=== PATIENT | male | born 1945 | race Caucasian/White ===

== ENCOUNTER 2016-11-24 21:18 | Inpatient (IN) | payer MEDICARE, OTHER ==
[~2016-11-24] VITALS: Ht 190.5 cm; Wt 74.3 kg
[2016-11-24 21:27] VITALS: BP 125/73; PULSE 87; RESP 20; O2SAT 96
[2016-11-24] MEDS ORDERED: 0.9% Sodium Chloride 1,000 ML IV ONE (21:47)
--- NOTE | 2016-11-24 21:47 | ED.REPORT ---
HPI-Fever Date of Service November 24, 2016 ED Provider: Dr. Gupta Pt is a 71 year old male who presents to the ED with complaints of a fever that started 10 days ago. He reports a mild cough, and chest pain at its onset. This progressively worsened as a head cold. Today, he began to feel excessively shaky and experience body aches. Pt additionally reports dysuria and increased urinary frequency. He denies any chest pain or shortness of breath now. He has no other complaints. Nursing Notes Stated Complaint: FEVER Chief Complaint: General Complaint Nursing Notes Reviewed: Yes Allergies: Coded Allergies: ciprofloxacin (Verified Allergy, Unknown, 11/24/16) General Time Seen by MD: 21:46 Chief Complaint Fever currently Hx Obtained From: Patient Arrived By: Walk-in Onset Occurred: More than a week ago... Symptom Duration: Waxes and wanes Location: : Head Quality: Painful Severity: Current: Mild Severity: Maximum: Moderate Context: Immunization Status General: All up to date Similar Sx Previous: Yes Past Medical History Past Medical History Healthy Ambulatory Status Independent Review of Systems Constitutional: Reports: Chills, Fever, Weakness - generalized, Denies: Malaise Respiratory: Reports: Non-productive cough, Shortness of breath, Denies: Wheezing Cardiovascular: Denies: Chest pain, Syncope GI: Denies: Abdominal pain, Constipation, Diarrhea, Nausea, Vomiting Female: Reports: Dysuria, Urinary frequency Skin: Denies Diaphoresis Neurologic: Denies: Change LOC, Dizziness, Headache, Syncope, Weakness Complete sys rev & neg: except as marked. Physical Exam Initial Vital Signs Vital Signs (First) Date Time Temp Pulse Resp B/P Pulse Ox O2 Delivery O2 Flow Rate FiO2 11/24/16 21:27 38.4 87 20 125/73 96 Room Air Initial VS: Reviewed Head / Eyes: Atraumatic, Normocephalic, PERRL ENT: Mucous membranes moist, Conjunctiva normal, No scleral icterus Abdomen / GI: Soft, Non-tender, No guarding, No rebound, No distention Psychiatric: Mood/affect normal, Behavior normal, Normal thought content General/Constitutional: Awake, Alert, Well appearing, Well developed, Well nourished, Cooperative Neck: Atraumatic, Supple, No meningismus Respiratory / Chest: Atraumatic, Breath sounds NL, Breath sounds = bilat, No respiratory distress Diffuse crackles heard bilaterally Cardiovascular: Heart rate NL, Regular rhythm, Heart sounds NL, No gallop, No murmurs, No rubs Skin: Atraumatic, Color NL, Warm Neurologic: Oriented X3, Speech NL, No motor deficits, No sensory deficits, CN II - XII intact Interpretation & Diagnostics Lab Results Interpretation Result Diagram: 11/24/16223411/24/162234 Test 11/24/16 22:35 11/24/16 23:30 11/24/16 23:45 White Blood Count 16.1th/mm3 (3.8-10.1) Red Blood Count 4.33mil/mm3 (4.40-5.80) Hemoglobin 13.4g/dL (13.8-17.2) Hematocrit 39.1% (41.0-50.0) Mean Corpuscular Volume 90.3fL (81-100) Mean Corpuscular Hemoglobin 30.9pg (27.0-35.0) Mean Corpuscular Hemoglobin Concent 34.3% (32.0-37.0) Red Cell Distribution Width 13.0% (12.3-15.4) Platelet Count 194bil/L (150-400) Neutrophils (%) (Auto) 90.1% (40-74) Lymphocytes (%) (Auto) 3.3% (14-46) Monocytes (%) (Auto) 6.1% (4-12) Eosinophils (%) (Auto) 0% (0-5) Basophils (%) (Auto) 0.1% (0-3) Prothrombin Time 11.1sec (8.1-12.5) Prothromb Time International Ratio 1.04ratio Sodium Level 140mEq/L (134-144) Potassium Level 3.6mEq/L (3.5-5.2) Chloride Level 100mEq/L (97-108) Carbon Dioxide Level 23mmol/L (18-29) Blood Urea Nitrogen 22mg/dL (8-27) Creatinine 0.88mg/dL (0.76-1.27) Estimat Glomerular Filtration Rate 90mL/min (>59) Glucose Level 110mg/dL (60-99) Lactic Acid Level 1.1mmol/L (0.4-2.0) Calcium Level 9.2mg/dL (8.5-10.1) Total Bilirubin 0.7mg/dL (0.0-1.2) Aspartate Amino Transf (AST/SGOT) 24U/L (0-50) Alanine Aminotransferase (ALT/SGPT) 15U/L (0-44) Alkaline Phosphatase 49U/L (25-160) Troponin T 0.010ug/L (0.0-0.011) Pro-B-Type Natriuretic Peptide 558.9pg/mL (0-376) Total Protein 6.5g/dL (6.4-8.4) Albumin 3.9g/dL (3.4-5.0) Lipase 21U/L (13-60) Procalcitonin 1.37ng/mL (0.00-0.08) D-Dimer 0.90mg/L FEU (<0.50) Urine Color Yellow (YELLOW) Urine Appearance Clear (CLEAR,HAZY) Urine pH 8.0 (5.0-8.0) Urine Specific [place] 1.020 (1.003-1.035) Urine Protein Negativemg/dL (NEG,TRACE) Urine Glucose (UA) Negativemg/dL (NEGATIVE) Urine Ketones 15mg/dL (NEGATIVE) Urine Occult Blood Trace (NEGATIVE) Urine Nitrite Negative (NEGATIVE) Urine Bilirubin Negative (NEGATIVE) Urine Urobilinogen Normalmg/dL (NORMAL) Urine Leukocyte Esterase Negative (NEGATIVE) Urine RBC 3-10/hpf (0-2) Urine WBC 0-5/hpf (0-5) Urine Epithelial Cells Occasional/hpf (NONE-MOD) Urine Crystals None seen (NONE SEEN) Urine Bacteria None/hpf (NONE-FEW) Urine Hyaline Casts None/lpf (NONE) Urine Granular Casts None seen (NONE SEEN) Urine Waxy Casts None seen (NONE SEEN) Urine Red Blood Cell Casts None seen (NONE SEEN) Urine White Blood Cell Casts None seen (NONE SEEN) Urine Mucus None seen (None Seen) Urine Trichomonas None seen (NONE SEEN) Urine Yeast None (NONE SEEN) Urine Culture Reflexed Not indicated ECG Interpretation ECG Interpretation: SR - 72 Time: 22:24 Interpreted by: ED physician Re-Eval/Medical Decision Med Decision/Clinical Course Solitary riders is suspicious for community acquired pneumonia. 17,000 white blood cell count. Elevated pro calcitonin and a developing infiltrate in the right chest. All things considered this as community acquired pneumonia. Pulmonary emboli seems much less likely. We will treat him with IV Rocephin and Zithromax. He is from [place] so therefore the valley fever antibodies will be sent out. He does not have an eosinophilia slight doubt he has Valley fever however following up with the antibodies as certainly the right approach. Source of Hx: Old records Re-Evaluation/Progress : Time of Eval: 23:51 Re-Evaluation/Progress Note: Pt is rechecked and informed of his labs and imaging results and the plan to admit him at this time. He underrstands and agrees, all questions are addressed. Consultation : Referral / Consult Name: Lani Cruz DO Consulted With: Hospitalist Call Returned at: 00:19 Magazine Filler: Will see patient, Agrees with plan, Accepts admit Counseled Regarding: Diagnosis, Lab results, Need for admission Discharge & Departure Shift Change Sign-Out Response to Therapy: Improved Impression: Primary Impression: Pneumonia Pneumonia type: due to unspecified organism Laterality: right Lung location : lower lobe of lung Qualified Code: J18.1 - Lobar pneumonia, unspecified organism Additional Impressions: Leukocytosis Leukocytosis type: bandemia Qualified Code: D72.825 - Bandemia Fever Fever type: unspecified Qualified Code: R50.9 - Fever, unspecified Disposition: ADMITTED TO HOSPITAL Discharge Condition All VS Reviewed: Yes Condition: Stable Referrals: NOPCP (PCP) Katelynibgordon Attestation Portions of this note were transcribed by Nica Gutierrez. I, Dr. Gupta personally performed the history, physical exam and medical decision-making; I reviewed and confirmed the accuracy of the information in the transcribed note. Signed by: Joellen Moreno, 11/24/2016 [Time]. Jasper Gupta DO November 24, 2016 21:47 JENNIFER GUTIERREZ November 24, 2016 22:36
[2016-11-24 22:53] LABS: BASOPHILS % (AUTO) 0.1 % (0-3); EOSINOPHILS % (AUTO) 0 % (0-5); MONOCYTES % (AUTO) 6.1 % (4-12); Mean Corpuscular Hemoglobin 30.9 pg (27.0-35.0); Mean Corpuscular Volume 90.3 fL (81-100); NEUTROPHILS % (AUTO) 90.1 % (40-74); Platelet Count 194 bil/L (150-400)
[2016-11-24 23:06] LABS: INR 1.04 ratio
[2016-11-24] MEDS ORDERED: cefTRIAXone Inj 2,000 MG in Dextrose 5% Minibag Plus 50 ML IV ONE (23:10)
[2016-11-24 23:20] LABS: TROPONIN T 0.01 ug/L (0.0-0.011)
[2016-11-24] MEDS ORDERED: Azithromycin Inj 500 MG in Dextrose 5% w/Vial Mate 250 ML IV ONE (23:50)
[2016-11-25 00:08] LABS: APPEARANCE,URINE CLEAR (CLEAR,HAZY); COLOR,URINE YELLOW (YELLOW); OCCULT BLOOD,URINE TRACE (NEGATIVE); UROBILINOGEN,URINE NORMAL (NORMAL)
[2016-11-25] MEDS ORDERED: Pantoprazole 4 mg/mL 10 mL Inj IVPUSH ONE (00:30)
[2016-11-25] MEDS ORDERED: Ondansetron 2 mg/mL 2 mL Inj IVPUSH PRN (00:30)
[2016-11-25] MEDS ORDERED: Alum-Mag Hydrox-Simeth 30 mL Suspension PO PRN (00:30)
[2016-11-25] MEDS ORDERED: Polyethylene Glycol (PEG) 17 Gm Powder PO PRN (00:30)
[2016-11-25 01:00] VITALS: BP 105/59; PULSE 75; RESP 16; O2SAT 94
--- NOTE | 2016-11-25 01:30 | PCM.HPMED ---
Subjective Date of Service November 25, 2016 Primary Provider: Admitting Physician: Lani Cruz DO Primary Care Physician: Pk Attending Physician: Lani Cruz DO Admit Status: From the Emergency Department Chief Complaint: Fevers, chills, malaise and fatigue. History of Present Illness: Mr. Bhavesh Hernández is a very pleasant 71-year-old gentleman who presents to the [facility] emergency Department with recent onset high fevers, chills, malaise and fatigue. He has a relatively benign past medical history only significant for hypertension, and hypothyroidism. He reports 7 days ago feeling not quite right which eventually progressed to a head cold for 3 days. Today he reports all of a sudden not feeling well and experienced fevers of 104 Fahrenheit, violent chills, malaise and fatigue. He denies sick contacts. He reports currently feeling pretty well, with some very mild nausea, and very mild right sided chest pain on deep inspiration. He denies headache, syncope, change in vision,vomiting, chest pain, palpitations, cough, shortness of breath , abdominal pain, constipation, diarrhea, or dysuria. He lives in [facility] 6 months a year and just returned from 6 months in [place] 2 days ago from a 24 hour car ride. He is in very good health and is an avid cyclist. He denies smoking or illicit drug use. He has 1-2 glasses of wine nightly. Upon admission to the emergency department patient's vitals were as follows: Temperature 38.4 C, pulse 87, respiratory rate 20, blood pressure 125/73, pulse ox 96 on room air. White count 16.1, hemoglobin 13.4, Princess to 194, neuts 90.1%, lymphocytes 3.3%. Sodium 140 potassium 3.6 chloride 100 carbon dioxide 23, glucose 110, lactic acid 1.1, proBNP 558, troponin 0.010, AST ALT alkaline phosphatase 24/15/49, lipase 21, pro calcitonin 1.37. UA negative. Influenza negative. Blood cultures 2 pending, sputum culture pending, viral respiratory panel ordered In the emergency department Patient received IV fluids, pantoprazole, ceftriaxone and azithromycin. Review of Systems: Constitutional: Reports malaise and fatigue. Denies syncope. HEENT: Reports chronic neck pain. Denies headache, change in vision. Respiratory: Reports nonproductive cough, mild. Denies shortness of breath. Cardiac: Denies chest pain or palpitations. GI: Reports mild nausea. Denies vomiting. : Reports chronic nocturia. Denies dysuria. Musculoskeletal: Denies pain, trauma. Integumentary: Denies rashes, lymphadenopathy, edema, erythema. Extremities: Denies numbness tingling, edema. Allergies Coded Allergies: ciprofloxacin (Verified Allergy, Unknown, 11/24/16) Home Medications Aspirin 81 mg daily Cholecalciferol 1000 units daily Glucosamine chondroitin vitamin D3 one tab daily Levothyroxine 125 g tablet taking 62.5 g daily Last 3 and 18 sodium 5 g tablet daily Lisinopril 20 mg twice a day Meloxicam 15 mg at night Sildenafil 20 mg by mouth when necessary Simvastatin 10 mg at night Tizanidine 4 mg by mouth at night Coenzyme Q10 10 mg daily Zolpidem 5 mg at night as needed PMH Hypertension Hypothyroidism Surgical History Denies surgical history. Family History Father at the age of 80 with pulmonary embolism. Social History Hx Alcohol Use: Yes (1-2 glasses wine per day) Hx Substance Use: No Exam Vital Signs Vital Sign - Last Date Time Temp Pulse Resp B/P Pulse Ox O2 Delivery O2 Flow Rate FiO2 11/25/16 01:00 37.3 75 16 105/59 94 Room Air Intake and Output 11/24/16 11/24/16 11/25/16 Cumulative From/Thru 15:00 23:00 07:00 11/24/16 21:27 - 11/24/16 22:49 Intake Total 1000 ml 1000 ml Balance 1000 ml 1000 ml Intake IV Total 1000 ml 1000 ml Exam General: Healthy-appearing elderly gentleman lying in bed in no acute distress, well-developed, well-nourished, appropriately interactive HEENT: Normocephalic, atraumatic. External ears without defect. Pupils equal, round, and reactive to light and accommodation. Anicteric sclerae, moist conjunctivae, and no lid lag. Oropharynx free of erythema and cobble stoning with moist mucosa. Neck: Supple with full range of motion. No jugular venous distension. No bruits. No lymphadenopathy or thyromegaly. Cardiovascular: Regular rate and rhythm with no murmurs, rubs, or gallops appreciated Pulmonary: Clear to auscultation bilaterally with very mild left middle lobe and expiratory and end inspiratory wheeze, no rhonchi. Normal respiratory effort with no use of accessory muscles. Abdomen: Bowel tones present. Soft, nontender, nondistended. No hepatosplenomegaly or masses appreciated. Extremities: No clubbing, cyanosis, edema, or lymphadenopathy appreciated. Skin: Normal temperature, turgor, and texture; no rash, ulcers, or subcutaneous nodules appreciated. Neurological: Cranial nerves grossly intact. Normal muscle strength, tone, and bulk. Reflexes, coordination, and sensory function within normal limits. No known gait impairment. Psychiatric: Normal mood and affect. Alert and oriented to person, place, and time. Lab and Diagnostics Result Diagram: 11/24/16223411/24/162234 Assessment & Plan Mr. Bhavesh Hernández is a very pleasant 71-year-old gentleman who presents to the [facility] emergency Department with recent onset high fevers, chills, malaise and fatigue. He has a relatively benign past medical history only significant for hypertension, and hypothyroidism. He reports 7 days ago feeling not quite right which eventually progressed to a head cold for 3 days. Today he reports all of a sudden not feeling well and experienced fevers of 104 Fahrenheit, violent chills, malaise and fatigue. He denies sick contacts. He reports currently feeling pretty well, with some very mild nausea, and very mild right sided chest pain on deep inspiration. He denies headache, syncope, change in vision,vomiting, chest pain, palpitations, cough, shortness of breath , abdominal pain, constipation, diarrhea, or dysuria. He lives in [facility] 6 months a year and just returned from 6 months in [place]. He is an avid cyclist. He denies smoking or illicit drug use. He has 1-2 glasses of wine nightly. 1. Sepsis, present on admission. Active. - Pulmonary source - White count 16.1, neutrophil 90.1, temperatures 38.4 C, respiratory rate 20. - Likely bacterial pneumonia vs viral vs valley fever. - Chest x-ray as above. - Rapid flu negative. - Pro calcitonin 1.37. - D-dimer 0.90. Patient does have several risk factors of recent travel (24 hours car ride 2 days ago) and father of pulmonary embolism. - Wells score was 1.5 = Low likelihood of PE, PERC score was 1. Patient was offered CT PE scan, and he declined due to radiation and claims of "radiation exposure that affected his thyroid." I advised that if your heart rate increases and/or you experience shortness of breath I would Highly recommend CT PE. - PCR viral panel pending. - Blood cultures 2. Pending. - Sputum culture pending. - Strep pneumo/Legionella Ur antigen pending. - Coccidioides Ab pending. - Continue antibiotics from ED, ceftriaxone, azithromycin. - Continue IV fluids. 2. Chronic hypertension, not present on admission. Controlled. - Continue home lisinopril 20 Mg. 3. Hypothyroidism, present on admission. Controlled. - Continue home Synthroid 125 Mcg daily. 4. Chronic neck pain. present on admission. Active. - Continue Mobic. Continue home medications. ASA 81. Simvastatin 10 Mg. Holding home medications. Sildenafil. Day team to reconcile other home medications. Tizanidine PRN. Zolpidem PRN. Liothyronine. 5 Mcg. Acetaminophen for mild pain when necessary. Bowel regimen Senna and MiraLAX scheduled and PRN. Zofran when necessary for nausea and vomiting. SubQ heparin held for now. SCDs in place. Disposition: Patient has been admitted under inpatient status. Discharge is dependent upon fevers and pneumonia, discharged home when medically stable. Pain Evaluation: Adequate Pain Control Resuscitation Status: CPR: Attempt Resuscitation Attending Statement The patient was seen and examined together with house staff on 11/25/2016 and I agree with the history, exam and plan as outlined in the note above. MARIELENA MACIEL DO November 25, 2016 01:30 Lani Cruz DO November 25, 2016 06:36
[2016-11-25 01:39] VITALS: BP 117/63; PULSE 76; RESP 18; O2SAT 98
[2016-11-25] MEDS ORDERED: ASPI-973 PO (01:50)
[2016-11-25] MEDS ORDERED: TIZA4CAP8 PO (01:50)
[2016-11-25] MEDS ORDERED: LIOT5TAB3 PO (01:50)
[2016-11-25] MEDS ORDERED: UBID10CA9 PO (01:50)
[2016-11-25] MEDS ORDERED: ZOLP5TAB6 PO (01:50)
[2016-11-25] MEDS ORDERED: LISI-567 PO (01:50)
[2016-11-25] MEDS ORDERED: GLUC-140 PO (01:50)
[2016-11-25] MEDS ORDERED: SILD20TA14 PO (01:50)
[2016-11-25] MEDS ORDERED: LEVO125T6 PO (01:50)
[2016-11-25] MEDS ORDERED: MELO15TA14 PO (01:50)
[2016-11-25] MEDS ORDERED: CHOL100045 PO (01:50)
[2016-11-25] MEDS ORDERED: SIMV10TA4 PO (01:50)
[2016-11-25] MEDS: 0.9% Sodium Chloride 1,000 ML IV SCH ×3 (02:45→22:30)
--- NOTE | 2016-11-25 04:53 | NUR ---
Admit to 1015 Pt arrived alert and fully oriented from ED, able to transfer self to bed with steady gait. Complains of mild chronic neck pain, declines offer of medication. Complains of pain in right side of chest with deep inspiration; declined to have CT done despite conversation with Md regarding potential radiation exposure. Will notify Md if symptoms concerning for PE increase. IV fluids infusing, SCDs applied, independent mobility. Oriented to hospital routines, plan of care; hourly rounding ongoing.
[2016-11-25 06:05] VITALS: BP 112/56; PULSE 61; RESP 18; O2SAT 98
--- NOTE | 2016-11-25 08:16 | DRSVH ---
PROCEDURE: X-RAY CHEST, TWO VIEWS ([id number]) INDICATIONS: fever, rigors TECHNIQUE: 2 views of the chest were acquired. COMPARISON: None. FINDINGS: Surgical changes and devices: None. Lungs and pleura: There is infiltrate in right middle lobe medially consistent with pneumonia. There is a nodular density in the right base, probably the nipple shadow. Hyperinflation consistent with C OPD. No pleural effusions or pneumothorax. Mediastinum: Mediastinal contours are normal. Heart size is normal. Bones and chest wall: No suspicious bony abnormalities. Soft tissues appear unremarkable. IMPRESSION: 1. Right middle lobe infiltrate compatible with pneumonia. 2. A nodular density in the right base, most likely caused by nipple shadow. Recommend followup exami nation with nipple shadow. 3. COPD. Dictated by: Judie Mohr M.D. on 11/25/2016 at 8:12 Approved by: Judie Mohr M.D. on 11/25/2016 at 8:14
--- NOTE | 2016-11-25 13:39 | NUR ---
Scheduled Hospital follow up appointment for December 04 check in at 410PM for a 430PM appointment with .
--- NOTE | 2016-11-25 14:06 | NUR ---
Social Work: Initial Assessment D: EMR reviewed. Pt is a 71 y/o male admitted for pneumonia, leukocytosis, and fever per H&P. BAYLEE met with pt and spouse at bedside to conduct initial assessment. Pt was alert and oriented x3. SW explained role and wrote phone number on white board. SW confirmed pt has completed DPOA/advanced directive ppw and encouraged pt to provide a copy to the hospital. Pt's primary contact and DPOA is spouse Padmini Hernández (Dee) ([phone]) and pt gave verbal consent that she can be contacted for discharge planning. Pt's insurance is Medicare and [employer]. Pt's PCP in [place] is Nadir Quick MD. Pt requested local PCP referral. SW requested MD to place order for SW to schedule local PCP appointment at [facility] residency clinic. Pt has no Hx of HH or SNF. Pt has no LTC or VA insurance. Pt is independent with ADLs. Pt does not use any DME. Pt drives. Pt is independent at baseline. Pt lives at home with spouse in [place] (6 months in and 6 months in [place]). Pt lives is a single-story, level home with no steps to enter. Pt's spouse will provide transport home via POV when pt is medically stable. BAYLEE will schedule appointment for local PCP through the residency clinic once MD has placed order. BAYLEE does not anticipate any discharge needs at this time but will continue to follow if needs arise. A: Pt who is independent at baseline. P: Pt's spouse will provide transport home via POV when pt is medically stable. BAYLEE will schedule appointment for local PCP through the residency clinic once MD has placed order. BAYLEE does not anticipate any discharge needs at this time but will continue to follow if needs arise. Addendum: 11/25/16 at 1421 by CHUNG CANELA Amended: Links added. Addendum: 11/25/16 at 1424 by CHUNG KAPADIA Pt scheduled with new PCP at [facility] on 12/[address] Capone. Pt is scheduled for a 16:10 check-in for a 16:30 appointment. SW confirmed appointment, location, and phone number of [facility] with pt and pt is agreeable. VIKTORIA Lopes Addendum: 11/25/16 at 1431 by CHUNG CANELA [facility]
--- NOTE | 2016-11-25 15:03 | NUR ---
Headache/concerns Patient c/o headache this am treated with Tylenol . Patient does also have some chest discomfort when takes deep inspiration but no resp distress noted. Patient denies cough, nausea or diarrhea. Patient has concerns regarding follow up appointment post discharge. Appointment has been made with residency clinic .
[2016-11-25 16:15] VITALS: BP 121/72; PULSE 53; RESP 16; O2SAT 97
--- NOTE | 2016-11-25 17:12 | PCM.PNMED ---
Subjective Date of Service November 25, 2016 Subjective Patient looks well, having a little bit of chest pain when he breathes deep but minimal to no cough no fevers. His on the other hand has a multitude of questions and wants to know every single lab value and result and is inquiring why certain diagnostics that were mentioned in the ER have not been done including a CT scan of the chest for which I see no indication at this time. I have explained her patient has strep pneumo antigen at the time I spoke to her we did not have the viral PCR back to no about Metapneumo virus and he actually looks quite well. Exam Vital Signs Vital Sign - Last Date Time Temp Pulse Resp B/P Pulse Ox O2 Delivery O2 Flow Rate FiO2 11/25/16 16:15 36.6 53 16 121/72 97 Room Air Intake and Output 11/24/16 11/24/16 11/25/16 Cumulative From/Thru 15:00 23:00 07:00 11/24/16 21:27 - 11/25/16 06:46 Intake Total 1000 ml 947 ml 1947 ml Output Total 1000 ml 1000 ml Balance 1000 ml -53 ml 947 ml Intake Oral 300 ml 300 ml IV Total 1000 ml 647 ml 1647 ml Output Urine Total 1000 ml 1000 ml Exam Gen.- A+ O 3 no apparent distress. Thin male sitting up in bed does not appear ill Eyes- open conjunctiva clear, pupils equal nonicteric ENT- ears normal, nose normal Neck- supple/trach midline CVS- RRR no murmur or gallop Lungs- CTA GI- NABS/NT soft Musc- moving 4 no obvious deformity Neuro- cranial nerves II through XII intact to gross examination, nonfocal Skin- warm and dry, no rashes/lesions/wounds noted Psych- pleasant and appropriate, Lab and Diagnostics Result Diagram: 11/24/16223411/24/162234 Assessment & Plan Healthy 71-year-old man who presents with acute on chronic pulmonary symptoms to the ER 11/24 and was admitted overnight. 11/25 I spent at least a 35min [id number] answering questions with the patient in the room for his . Going over every lab value that was back. 1. Sepsis, present on admission. Active. - Blood cultures 2. Pending. - Sputum culture pending. - Strep pneumo ++/Legionella Ur antigen pending. - Coccidioides Ab pending. -Viral profile positive for metapneumo virus - Continue antibiotics from ED, ceftriaxone, azithromycin. - Continue IV fluids. 2. Chronic hypertension, not present on admission. Controlled. - Continue home lisinopril 20 Mg. 3. Hypothyroidism, present on admission. Controlled. - Continue home Synthroid 125 Mcg daily. 4. Chronic neck pain. present on admission. Active. - Continue Mobic. Continue home medications. ASA 81. Simvastatin 10 Mg. Holding home medications. Sildenafil. Day team to reconcile other home medications. Tizanidine PRN. Zolpidem PRN. Liothyronine. 5 Mcg. Acetaminophen for mild pain when necessary. Bowel regimen Senna and MiraLAX scheduled and PRN. Zofran when necessary for nausea and vomiting. SubQ heparin held for now. SCDs in place. Disposition: Patient has been admitted under inpatient status. Discharge is dependent upon fevers and pneumonia, discharged home when medically stable. VTE Mechanical Devices: Intermittant Pneumatic CD Resuscitation Status: CPR: Attempt Resuscitation Tyrese Fernandez MD November 25, 2016 17:12
[2016-11-25 20:23] VITALS: BP 130/72; PULSE 59; RESP 18; O2SAT 98
[2016-11-25] MEDS ORDERED: cefTRIAXone Inj 2,000 MG in Dextrose 5% Minibag Plus 50 ML IV SCH (22:00)
[2016-11-25] MEDS ORDERED: Azithromycin Inj 500 MG in Dextrose 5% w/Vial Mate 250 ML IV SCH (23:30)
--- NOTE | 2016-11-26 04:07 | NUR ---
Pain 'Plueritic pain continues, pt noted that evening dose of Mobic improved his pain management significantly. Otherwise, uneventful night; pt able to sleep, IV antibiotics infused without increase in nausea. Hourly rounding ongoing.
[2016-11-26 04:48] VITALS: BP 135/77; PULSE 57; RESP 18; O2SAT 99
[2016-11-26 07:50] LABS: BASOPHILS % (AUTO) 0.3 % (0-3); EOSINOPHILS % (AUTO) 1.1 % (0-5); MONOCYTES % (AUTO) 5.2 % (4-12); Mean Corpuscular Volume 92.7 fL (81-100); NEUTROPHILS % (AUTO) 82.7 % (40-74); Platelet Count 178 bil/L (150-400)
--- NOTE | 2016-11-26 10:11 | PCM.DIMED ---
Discharge Instructions Date of Service November 26, 2016 Dates of Hospitalization November 25, 2016 at 01:04 Discharge Diagnosis Discharge Diagnosis metapneumo virus, probable streptococcal pneumonia Diet Discharge Diet: Heart Healthy Activity Discharge Activity: No restrictions Call your provider Call your provider for: Fever or Chills, Shortness of breath Patient Instructions Patient Instructions Finish antibiotics if you are feeling well the result of coccidial mycoses "valley fever" is irrelevant if you are not feeling well you may need fluconazole. Follow-up plan Refer to resident clinic his PCP is in [place] Follow-up with PCP in: Other (reportedly 12/03) Tyrese Fernandez MD November 26, 2016 10:11
[2016-11-26] MEDS ORDERED: IBUP-1827 PO (10:13)
[2016-11-26] MEDS ORDERED: LACT1CAP86 PO (10:16)
[2016-11-26] MEDS ORDERED: CEFU500T61 PO (10:16)
[2016-11-26] MEDS ORDERED: AZIT500T5 PO (10:16)
--- NOTE | 2016-11-26 13:42 | NUR ---
Discharge Pt discharged at 1305 walking to private vehicle with . Pt has no c/o pain or SOB on RA, VSS, HIGGINS, A&O x 3. Pt has discharge instructions and care notes. Rx's sent electronically to pharmacy. Pt understands he has f/u appt at residency clinic and address provided. Pt has all belongings and all questions answered. Addendum: 11/26/16 at 1345 by ELMO SHAW RN IV removed intact.
--- NOTE | 2016-11-26 14:10 | NUR ---
Social Work: Discharge D: EMR reviewed. Pt is a 71 y/o male admitted for pneumonia, leukocytosis, and fever per H&P. Pt is medically stable to discharge today. Pt has been established with a [facility]idency Clinic appointment with MD Capone 04 DECEMBER at 4:10. Pt's spouse will provide transport home via POV when pt is medically stable. No additional discharge needs identified. A: Pt who is independent at baseline. P: Pt's spouse will provide transport home via POV when pt is medically stable. No additional discharge needs identified. Princess Amador, SOUND ENGINEERING TECHNICIAN
--- NOTE | 2016-11-26 16:46 | PCM.DC.MED ---
Discharge Summary Date of Service November 26, 2016 Dates of Hospitalization Date of Hospital Admission November 25, 2016 at 01:04 Date of Discharge: November 26, 2016 Providers: Admitting Physician: Lani Cruz DO Primary Care Physician: Pk Attending Physician: Lani Cruz DO Diagnosis at Time of Discharge Diagnosis at Time of Discharge metapneumo virus, probable streptococcal pneumonia Consultations None Procedures XRay, CTs & MRIs CXR IMPRESSION: 1. Right middle lobe infiltrate compatible with pneumonia. 2. A nodular density in the right base, most likely caused by nipple shadow. Recommend followup examination with nipple shadow. 3. COPD. Dictated by: Judie Mohr M.D. on 11/25/2016 at 8:12 ECG 12 Lead EKG done in the ER not available at time of discharge Brief History 71-year-old gentleman who presents to the [facility] emergency Department with recent onset high fevers, chills, malaise and fatigue. Hospital Course Healthy 71-year-old man who presents with acute on chronic pulmonary symptoms to the ER 11/24 and was admitted overnight. 11/25 I spent at least a 35min [id number] answering questions with the patient in the room for his . Going over every lab value that was back. 11/26 patient's white count had improved he had remained afebrile and never required oxygen never desaturated for the duration. He had some right sided pleuritic chest pain was well controlled with ibuprofen. I unfortunately misinformed that the chest x-ray was normal and only noted this time I was dictating this discharge summary. His is extremely meticulous and wanted to know every single result that unfortunately within the morass of normals this abnormality was missed. That said it does not change the management. He will however require follow-up chest x-ray as per their recommendations to verify there is nothing suspicious as indicated there was something about the "nipple shadow" recommending follow-up. 1. Sepsis, present on admission. Active. - Blood cultures 2. Pending. - Sputum culture pending.- Strep pneumo ++/Legionella Ur antigen pending. - Coccidioides Ab pending. -Viral profile positive for metapneumo virus 2. Chronic hypertension, not present on admission. Controlled. - Continue home lisinopril 20 Mg. 3. Hypothyroidism, present on admission. Controlled. - Continue home Synthroid 125 Mcg daily. 4. Chronic neck pain. present on admission. Active. - Continue Mobic. or Naprosyn/ibuprofen but not both Continue home medications. ASA 81. Simvastatin 10 Mg. Holding home medications. Sildenafil. Day team to reconcile other home medications. Tizanidine PRN. Zolpidem PRN. Liothyronine. 5 Mcg. Acetaminophen for mild pain when necessary. Bowel regimen Senna and MiraLAX scheduled and PRN. Zofran when necessary for nausea and vomiting. SubQ heparin held for now. SCDs in place. Disposition: Patient has been admitted under inpatient status. Discharge is dependent upon fevers and pneumonia, discharged home when medically stable. Exam Vital Signs (Last) Date Time Temp Pulse Resp B/P Pulse Ox O2 Delivery O2 Flow Rate FiO2 11/26/16 04:48 36.6 57 18 135/77 99 Room Air Test 11/24/16 22:35 11/24/16 23:30 11/24/16 23:45 11/26/16 05:15 Prothrombin Time 11.1sec (8.1-12.5) Prothromb Time International Ratio 1.04ratio Lactic Acid Level 1.1mmol/L (0.4-2.0) Total Bilirubin 0.7mg/dL (0.0-1.2) Aspartate Amino Transf (AST/SGOT) 24U/L (0-50) Alanine Aminotransferase (ALT/SGPT) 15U/L (0-44) Alkaline Phosphatase 49U/L (25-160) Troponin T 0.010ug/L (0.0-0.011) Pro-B-Type Natriuretic Peptide 558.9pg/mL (0-376) Total Protein 6.5g/dL (6.4-8.4) Albumin 3.9g/dL (3.4-5.0) Lipase 21U/L (13-60) D-Dimer 0.90mg/L FEU (<0.50) Urine Color Yellow (YELLOW) Urine Appearance Clear (CLEAR,HAZY) Urine pH 8.0 (5.0-8.0) Urine Specific [place] 1.020 (1.003-1.035) Urine Protein Negativemg/dL (NEG,TRACE) Urine Glucose (UA) Negativemg/dL (NEGATIVE) Urine Ketones 15mg/dL (NEGATIVE) Urine Occult Blood Trace (NEGATIVE) Urine Nitrite Negative (NEGATIVE) Urine Bilirubin Negative (NEGATIVE) Urine Urobilinogen Normalmg/dL (NORMAL) Urine Leukocyte Esterase Negative (NEGATIVE) Urine RBC 3-10/hpf (0-2) Urine WBC 0-5/hpf (0-5) Urine Epithelial Cells Occasional/hpf (NONE-MOD) Urine Crystals None seen (NONE SEEN) Urine Bacteria None/hpf (NONE-FEW) Urine Hyaline Casts None/lpf (NONE) Urine Granular Casts None seen (NONE SEEN) Urine Waxy Casts None seen (NONE SEEN) Urine Red Blood Cell Casts None seen (NONE SEEN) Urine White Blood Cell Casts None seen (NONE SEEN) Urine Mucus None seen (None Seen) Urine Trichomonas None seen (NONE SEEN) Urine Yeast None (NONE SEEN) Urine Culture Reflexed Not indicated Urine Legionella pneumophilia Ag Negative (Negative) White Blood Count 11.2th/mm3 (3.8-10.1) Red Blood Count 3.81mil/mm3 (4.40-5.80) Hemoglobin 11.8g/dL (13.8-17.2) Hematocrit 35.3% (41.0-50.0) Mean Corpuscular Volume 92.7fL (81-100) Mean Corpuscular Hemoglobin 31.0pg (27.0-35.0) Mean Corpuscular Hemoglobin Concent 33.4% (32.0-37.0) Red Cell Distribution Width 13.9% (12.3-15.4) Platelet Count 178bil/L (150-400) Neutrophils (%) (Auto) 82.7% (40-74) Lymphocytes (%) (Auto) 10.5% (14-46) Monocytes (%) (Auto) 5.2% (4-12) Eosinophils (%) (Auto) 1.1% (0-5) Basophils (%) (Auto) 0.3% (0-3) Sodium Level 145mEq/L (134-144) Potassium Level 4.2mEq/L (3.5-5.2) Chloride Level 109mEq/L (97-108) Carbon Dioxide Level 25mmol/L (18-29) Blood Urea Nitrogen 18mg/dL (8-27) Creatinine 1.01mg/dL (0.76-1.27) Estimat Glomerular Filtration Rate 77mL/min (>59) Glucose Level 87mg/dL (60-99) Calcium Level 8.5mg/dL (8.5-10.1) Procalcitonin 2.60ng/mL (0.00-0.08) Discharge Medications Discharge Medications Aspirin (Aspirin) 81 Mg Tablet 81 MG PO DAILY (Reported) Azithromycin (Azithromycin) 500 Mg Tablet 500 MG PO DAILY Prescribed by: EDIL FERNANDEZ MD Cefuroxime Axetil (Cefuroxime) 500 Mg Tablet 500 MG PO BID Prescribed by: EDIL FERNANDEZ MD Cholecalciferol (Vitamin D3) (Vitamin D) 1,000 Unit Capsule 1,000 UNIT PO DAILY (Reported) Lactobacillus Acidophilus (Acidophilus Lactobacilli) 500 Million Cell Capsule 1 EACH PO DAILY Prescribed by: EDIL FERNANDEZ MD Levothyroxine (Levothyroxine) 125 Mcg Tablet 62.5 MCG PO DAILY (Reported) Liothyronine Sodium (Liothyronine Sodium) 5 Mcg Tablet 5 MCG PO DAILY (Reported ) Lisinopril (Lisinopril) 20 Mg Tablet 20 MG PO BID (Reported) Meloxicam (Mobic) 15 Mg Tablet 15 MG PO HS (Reported) Simvastatin (Simvastatin) 10 Mg Tablet 10 MG PO HS (Reported) Ubidecarenone (Coenzyme Q10) 10 Mg Capsule 10 MG PO DAILY (Reported) As needed Ibuprofen (Ibuprofen) 600 Mg Tablet 600 MG PO TID PRN PRN For Pain Prescribed by: EDIL FERNANDEZ MD Sildenafil Citrate (Sildenafil) 20 Mg Tablet 20 MG PO PRN for sexual activity ( Reported) Tizanidine (Tizanidine) 4 Mg Capsule 4 MG PO HS PRN PRN Insomnia (Reported) Zolpidem (Zolpidem) 5 Mg Tablet 5 MG PO HS PRN PRN For Insomnia (Reported) Miscellaneous Medications Glucosamine/Chondroitin/Vit D3 ([id number]-[id number] D3 Tab) 1 Each Tablet 1 EACH PO (Reported) Followup Plan Disposition: To home Follow-up plan Refer to resident clinic his PCP is in [place] Discharge Diet: Heart Healthy Discharge Activity: No restrictions Patient Instructions Finish antibiotics if you are feeling well the result of coccidial mycoses "valley fever" is irrelevant if you are not feeling well you may need fluconazole. Follow-up with PCP in: Other (reportedly 12/03) Time spent Greater than 35 minutes Attending Statement Patient's was misinformed by me that chest x-ray was normal. It does not loom changer other than he does need a follow-up chest x-ray please see the report for the indications. Reportedly has follow-up appointment 12/03. 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 If he is having fevers and chills and might do this site unseen. His chest x-ray was not however suggestive of valley fever. copies to: [facility] Edil Fernandez MD November 26, 2016 16:46
== END 2016-11-26 13:04 | disposition home or self-care (01) | DRG 871 ==
LOC: SED 21:18 → OSC 11-25 01:04
PROVIDERS: ADMIT Internal Medicine; ATTEND Internal Medicine
DX: A41.9 Sepsis, unspecified organism (principal); J13 Pneumonia due to Streptococcus pneumoniae; Z79.82 Long term (current) use of aspirin; I10 Essential (primary) hypertension; E03.9 Hypothyroidism, unspecified; M54.2 Cervicalgia; B97.81 Human metapneumovirus as the cause of diseases classified elsewhere